=== PATIENT | male | born 2000 | race Two or more races ===

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

== ENCOUNTER 2018-06-24 08:26 | Emergency (ER) | payer OTHER ==
[~2018-06-24] VITALS: Ht 170.2 cm; Wt 68.0 kg
[~2018-06-24 08:26] MED LIST changes: +AMOXICILLIN500 MG ORAL; +NKM; +ROBITUSSIN COU237 M1 PO
[2018-06-24 08:40] VITALS: BP 113/71
[2018-06-24] MEDS ORDERED: GUAIFENESIN DM118 M1 ORAL (08:42)
[2018-06-24] MEDS ORDERED: AMOXICILLIN500 MG ORAL (08:42)
[2018-06-24 08:56] VITALS: BP 112/70
--- NOTE | 2018-06-24 09:23 | Emergency Room Report ---
History of Present Illness General Chief Complaint: Upper Respiratory Illness Source: Family Member Present Illness HPI Patient is a 17-year-old male with history of autism presented after increased cough. Patient reportedly had been having increased sore throat as well as left -sided earache. He had not been vomiting or having any abdominal pain. The patient is not currently taking any medications. He denies recent trauma. Allergies: Coded Allergies: No Known Allergies (Unverified , 08/05/17) Patient History Reviewed Nursing Documentation: PMH: Agreed; PSxH: Agreed Review of Systems All Other Systems: negative except mentioned in HPI Physical Exam Vital Signs Date Time Temp Pulse Resp B/P (MAP) Pulse Ox O2 Delivery O2 Flow Rate FiO2 06/24/18 08:31 98.4 100 18 113/71 97 Room Air General Appearance: well appearing, no apparent distress, alert, GCS 15 Head: normocephalic, atraumatic ENT: hearing grossly normal, normal voice, other - left ear tm bulging, erythema, fluid Neck: full range of motion, supple Respiratory: no respiratory distress, no accessory muscle use, speaking full sentences Cardiovascular #1: normal inspection Gastrointestinal: normal inspection Musculoskeletal: normal inspection, no calf tenderness Neurologic: normal inspection, alert, responsive, neurological physiotherapist III-XII nml as tested, motor strength/tone normal, normal gait, other - decreased verbal output, but talks normally and very briefly Psychiatric: other - flat affect, speech normal Skin: no rash Medical Decision Making Diagnostic Impression: Primary Impression: Otitis media ER Course The patient presented for cough. Differential diagnosis included was not limited to bronchitis, pneumonia, foreign body, asthma among others. Patient has a benign exam and does not appear to require any further imaging or laboratory testing at this time. The patient noted to have a markedly left ear erythema and bulging consistent with an acute otitis media. Patient was given prescription for oral antibiotics. The patient given medications for symptom medical treatment of his cough. The patient advised to follow-up with his private care physician for reexamination Last Vital Signs Date Time Temp Pulse Resp B/P (MAP) Pulse Ox O2 Delivery O2 Flow Rate FiO2 06/24/18 08:56 98.4 98 18 112/70 99 Room Air Status: improved Disposition: HOME, SELF-CARE Condition: Stable Scripts Guaifenesin/Dextromethorphan (Guaifenesin Dm Syrup) 5 Ml Syrup 1 TSP ORAL Q8H, #118 ML 0 Refills Prov: Jus Palma MD 06/24/18 Amoxicillin* (AMOXIL*) 500 Mg Capsule 500 MG ORAL THREE TIMES A DAY, #21 CAP Prov: Jus Palma MD 06/24/18 Referrals: NON PHYSICIAN (PCP) Patient Instructions: Otitis Media, Adult Jus Palma MD Jun 24, 2018 09:23
== END 2018-06-24 08:56 | disposition home or self-care (01) ==
LOC: EMR 08:49
DX: H66.92 Otitis media, unspecified, left ear (principal); H92.02 Otalgia, left ear; F84.0 Autistic disorder
CPT/HCPCS: 99282